=== PATIENT | male | born 1985 ===

== ENCOUNTER 2022-11-12 05:12 | Day surgery (SDC) | payer OTHER ==
[2022-11-12] MEDS ORDERED: NEXIUM 24HR20 MG PO (08:52)
== END 2022-11-12 10:30 | disposition home or self-care (01) ==
LOC: AMB-ENDOS 05:12
PROVIDERS: ATTEND Surgery
DX: K29.70 Gastritis, unspecified, without bleeding (principal); R10.13 Epigastric pain; K44.9 Diaphragmatic hernia without obstruction or gangrene; K20.90 Esophagitis, unspecified without bleeding; E66.09 Other obesity due to excess calories